=== PATIENT | female | born 2000 | race Caucasian/White ===

== ENCOUNTER 2018-07-05 20:21 | Observation (INO) | payer BC, OTHER ==
[2018-07-05 21:28] LABS: #Lymphocytes 1.2 thou/uL (1.20-3.40); #Monocytes 0.5 thou/uL (0.11-0.59); #Neutrophils 3.5 thou/uL (1.40-6.50); %Basophils 0.3 % (0.0-1.0); %Eosinophils 0.6 % (0.0-10.0); %Lymphocytes 23.4 % (28.0-48.0); %Monocytes 8.6 % (0.0-4.0); %Neutrophils 67.1 % (31.0-61.0); Hemoglobin 12.5 g/dL (12.0-16.0); Mean Corpuscular HGB CONC 35.4 g/dL (32.0-36.0); Mean Corpuscular Hemoglobin 30.2 pg (25.0-35.0); Mean Corpuscular Volume 85.4 fL (78.0-98.0); Mean Platelet Volume 8.4 fL (7.4-10.4); Platelet Count 171 thou/uL (130-400); RBC Distribution Width 11.1 % (11.5-14.5); Red Blood Cell (RBC) Count 4.12 mill/uL (4.00-5.20); White Blood Cell (WBC) Count 5.3 thou/uL (4.8-10.8)
[2018-07-05 21:48] LABS: ALT (SGPT) 13 U/L (8-55); AST (SGOT) 14 U/L (5-30); Albumin 4.1 g/dL (3.5-5.0); Alkaline Phosphatase 53 U/L (40-150); Anion Gap 15 mmol/L (10-20); BUN (Urea Nitrogen) 10 mg/dL (8.4-21.0); Bilirubin, Total 0.7 mg/dL (0.2-1.2); Calc. Creatinine Clearance 0 mL/min (70-130); Calcium 9.4 mg/dL (7.8-10.44); Carbon Dioxide 22 mmol/L (22-29); Chloride 106 mmol/L (98-107); Estimated GFR-MDRD Greater than 90; Globulin 2.9 g/dL (2.4-3.5); Glucose 83 mg/dL (70-105); Lipase 11 U/L (8-78); Potassium 3.9 mmol/L (3.5-5.1); Sodium 139 mmol/L (136-145)
[2018-07-05] MEDS ORDERED: MEROPENEM 1 GM/50 ML 1 GM in Premix Bag 1 BAG IVPB ONE (23:30)
[2018-07-05 23:41] LABS: BHCG - Serum Negative (NEGATIVE); Pregs Control Background? CLEAR/WHITE (CLR/WHITE); Pregs Control Bar Appear? YES (CONTROL BAR)
[2018-07-06] MEDS ORDERED: Morphine 4 MG/ML VIAL SLOW IVP PRN ×3 (01:15→15:41)
[2018-07-06] MEDS ORDERED: Acetaminophen 325 MG TAB PO PRN (01:16)
[2018-07-06] MEDS ORDERED: Ondansetron PF 4 MG/2 ML Vial IVP PRN ×2 (01:16→15:41)
[2018-07-06] MEDS ORDERED: Ondansetron ODT 4 MG TAB SL PRN (01:16)
[2018-07-06] MEDS ORDERED: HYDROcodone/Acetaminophen 5/325 mg Tablet PO PRN ×2 (01:16)
[2018-07-06] MEDS: Dextrose 5 %-0.45 % NaCl 1,000 ML IV SCH ×2 (01:28→12:29)
[2018-07-06 01:43] VITALS: BMI 19.5
--- NOTE | 2018-07-06 09:43 | HP ---
CHIEF COMPLAINT: Abdominal pain. HISTORY OF PRESENT ILLNESS: This is a 17-year-old female who presented to the emergency room in [place] yesterday evening with lower abdominal crampy pain, described as 8/10 and sharp, mostly on the right side, did not radiate, associated with nausea, no vomiting. No change in stools. She has not had history of chronic abdominal pain or inflammatory bowel disease. CT there showed stranding around the cecum, but the appendix was not seen. They wanted to transfer her to [facility] for higher level of care and appendectomy, and she chose to come here, which is home. She notes improvement in her pain, but it is persistent. No overnight nausea or vomiting. She is hemodynamically stable. PAST MEDICAL HISTORY: She denies. PAST SURGICAL HISTORY: She denies. MEDICATIONS: Medicines taken daily, none. ALLERGIES: PENICILLIN. SOCIAL HISTORY: No smoking, alcohol, or other drugs. She is a college student here in [facility]. REVIEW OF SYSTEMS: Otherwise negative unless described above. PHYSICAL EXAMINATION: VITAL SIGNS: Blood pressure is 97/61, pulse 78, respirations 16, and she is afebrile. HEENT: Sclerae anicteric. Oropharynx clear. NECK: No lymphadenopathy. CHEST: Clear. HEART: Regular rate and rhythm. ABDOMEN: Soft, tender right lower quadrant with localized guarding. No rebound. No abdominal or inguinal hernia. EXTREMITIES: No ischemia or edema to extremities. LABORATORY DATA: Labs show white blood cell count of 5 and hemoglobin of 12. Creatinine 0.71. DIAGNOSTIC DATA: CT scan reviewed, which shows maybe minimal stranding in the right lower quadrant, hard to differentiate appendix from cecum. Very limited by lack of intraabdominal fat. ASSESSMENT: Right lower quadrant pain, persistent, rule out acute appendicitis. PLAN: Long discussion with the patient and her mother about potential etiologies which include appendicitis. They elect to undergo laparoscopy, possible appendectomy. Risks, benefits, and alternatives were discussed. They gave consent. We will do this today. Job ID: [id number]
[2018-07-06] MEDS ORDERED: MEROPENEM 1 GM/50 ML 1 GM in Premix Bag 1 BAG IVPB SCH (12:00)
[2018-07-06] MEDS ORDERED: Bupivacaine/Epinephrine 0.25% 30 ML VIAL ONE (13:27)
[2018-07-06] MEDS ORDERED: Promethazine HCl 25 MG/ML VIAL ONE (13:30)
[2018-07-06] MEDS ORDERED: Fentanyl 100 MCG/2 ML VIAL ONE ×2 (13:30→15:05)
[2018-07-06] MEDS ORDERED: Midazolam HCl 2 mg/2 ml Vial ONE (13:30)
[2018-07-06] MEDS ORDERED: HYDROmorphone 2 MG/ML VIAL SLOW IVP PRN (14:36)
[2018-07-06] MEDS ORDERED: PACU-Morphine 4MG/ML VIAL SLOW IVP PRN (14:36)
[2018-07-06] MEDS ORDERED: Ondansetron HCl/PF 4 MG/2 ML Vial IVP PRN (14:36)
[2018-07-06] MEDS ORDERED: Promethazine HCl 25 MG/ML VIAL SLOW IVP PRN (14:36)
[2018-07-06] MEDS ORDERED: Promethazine HCl 25 MG/ML VIAL IM PRN ×2 (14:36→15:41)
[2018-07-06] MEDS ORDERED: Dextrose 50% Abboject 50 ML SYRINGE SLOW IVP PRN (15:41)
[2018-07-06] MEDS ORDERED: Dextrose 5% in Water 1,000 ML IV PRN (15:41)
[2018-07-06] MEDS ORDERED: Ketorolac Tromethamine 30 MG/ML VIAL IVP PRN (15:41)
[2018-07-06] MEDS ORDERED: D5 1/2 NS w/20 mEq KCL 1,000 ML IV SCH (15:41)
[2018-07-06] MEDS ORDERED: hydrALAZINE 20 MG/ML VIAL SLOW IVP PRN (15:41)
[2018-07-06] MEDS ORDERED: HYDROcodone/Acetaminophen 10/325 mg Tablet PO PRN (15:41)
[2018-07-06] MEDS ORDERED: Ondansetron PF 4 MG/2 ML Vial ONE (15:49)
[2018-07-06] MEDS ORDERED: Dexamethasone 20 MG/5 ML VIAL ONE (15:49)
[2018-07-06] MEDS ORDERED: PHENYLEPHRINE-NS 100 MCG/ML 10 ML SYRINGE ONE (15:49)
[2018-07-06] MEDS ORDERED: Ketorolac Tromethamine 30 MG/ML VIAL ONE (15:49)
[2018-07-06] MEDS ORDERED: Lidocaine 1% PF 5 ML VIAL ONE (15:49)
[2018-07-06] MEDS ORDERED: Glycopyrrolate 0.2 MG/ML 5 ML SYRINGE ONE (15:49)
[2018-07-06] MEDS ORDERED: Rocuronium Bromide 10 MG/ML (10ML VIAL) ONE (15:49)
[2018-07-06] MEDS ORDERED: PROPOFOL 200 MG/20 ML VIAL ONE (15:49)
--- NOTE | 2018-07-06 15:51 | OP ---
DATE OF PROCEDURE: 07/06/2018 PREOPERATIVE DIAGNOSIS: Acute appendicitis. POSTOPERATIVE DIAGNOSIS: Acute appendicitis. PROCEDURE PERFORMED: Laparoscopic appendectomy. ANESTHESIA: General. ESTIMATED BLOOD LOSS: Minimal. COMPLICATIONS: None. SPECIMENS: Appendix. FINDINGS: Appendicitis. DESCRIPTION OF PROCEDURE: The patient was taken to the operating room and laid supine on the operating room table. After general anesthetic was obtained, a Gramajo was placed. The abdomen was prepped and draped in a sterile fashion. A curved incision was made below the umbilicus. Cautery was dissected down to and score the fascia. Abdominal cavity was entered bluntly using a Carlyn clamp. PDS was placed on each side of the fascia. Will trocar was placed. High-flow pneumoperitoneum was obtained. Suprapubic 5-mm port and left lower quadrant 5-mm port were placed under direct visualization. Cecum was rolled over to reveal acute appendicitis. Small window was made at the base of the appendix and mesoappendix. Laparoscopic stapler was fired across the base of the appendix. A vascular reload was fired across the mesoappendix. The appendix was placed in EndoCatch bag and brought out through the Will. All port sites were infiltrated using local anesthetic. The right lower quadrant and pelvis were irrigated using sterile solution. There was no ongoing bleeding. There was no evidence of perforation or injury to any intraabdominal structures. All ports were removed under camera visualization without bleeding. Pneumoperitoneum was let down. PDS was used to close the fascial defect below the umbilicus. All incisions were irrigated and closed using 4-0 Monocryl and Dermabond. The patient was sent to Recovery in stable condition. All instrument counts, needle counts, and lap counts were correct. Job ID: [id number]
[2018-07-06 18:33] VITALS: TEMP 98.3
[2018-07-06 19:37] VITALS: BP 100/58
[2018-07-06] MEDS ORDERED: Famotidine/PF 20 mg/2ml Vial SLOW IVP SCH (21:00)
[2018-07-06] MEDS ORDERED: Famotidine 20 MG TAB PO SCH (21:00)
== END 2018-07-06 19:29 | disposition home or self-care (01) ==
LOC: EEVIPCON 20:21 → ERS 20:21 → SURG B 07-06 01:08
PROVIDERS: ADMIT Surgery; ATTEND Surgery
PROC: 0DTJ4ZZ Resection of Appendix, Percutaneous Endoscopic Approach (ICD-10-PCS; principal; 2018-07-06)
DX: K35.80 Unspecified acute appendicitis (principal); Z88.0 Allergy status to penicillin
CPT/HCPCS: 36415; 80053; 83690; 84703; 85025; 88304; 96361; 96365; 96375; G0378; J0131; J1100; J1885; J2001; J2185; J2250; J2405; J2550; J2704; J3010